=== PATIENT | female | born 1955 | race Caucasian/White ===

== ENCOUNTER → 2017-12-08 | Outpatient (CLI) | payer OTHER | LOC: FIMAGING 13:15 | PROVIDERS: ATTEND Psychiatry & Neurology Neurology | DX: M50.322 Other cervical disc degeneration at C5-C6 level (principal); M50.323 Other cervical disc degeneration at C6-C7 level ==

== ENCOUNTER → 2018-07-11 | Outpatient (CLI) | payer OTHER | LOC: BMCIMAGING 14:47 | PROVIDERS: ATTEND Physician Assistant | DX: M79.642 Pain in left hand (principal) ==

== ENCOUNTER → 2018-09-26 | Outpatient (CLI) | payer OTHER | LOC: BMCIMAGING 14:51 | PROVIDERS: ATTEND Internal Medicine | DX: Z12.31 Encounter for screening mammogram for malignant neoplasm of breast (principal) ==

== ENCOUNTER → 2018-12-10 | Outpatient (CLI) | payer OTHER | LOC: BMCIMAGING 09:57 | PROVIDERS: ATTEND Podiatrist Foot & Ankle Surgery | DX: S99.912A Unspecified injury of left ankle, initial encounter (principal); S99.922A Unspecified injury of left foot, initial encounter; M20.12 Hallux valgus (acquired), left foot; M21.612 Bunion of left foot; W10.9XXA Fall (on) (from) unspecified stairs and steps, initial encounter ==